=== PATIENT | female | born 1970 | race Caucasian/White ===

== ENCOUNTER 2020-03-12 22:30 | Emergency (ER) | payer BC ==
[~2020-03-12] VITALS: Ht 167.6 cm; Wt 57.2 kg
[2020-03-12 22:36] VITALS: Ht 167.6 cm; Wt 57.2 kg
[2020-03-13 00:23] LABS: BASOPHIL % 0.4 % (0-2); PLATELET COUNT 297 x10^3mcL (130-400); RED CELL DISTRIBUTION WIDTH 12.2 % (11.5-14.5)
[2020-03-13 00:31] LABS: T3 TOTAL 1.6 ng/mL
[2020-03-13 00:33] LABS: ALBUMIN 3.5 g/dL (3.4-5.0); ALKALINE PHOSPHATASE 61 U/L (46-116); ALT/SGPT 22 U/L (14-59); AST/SGOT 17 U/L (15-37); BILIRUBIN TOTAL 0.18 mg/dL (0.20-1.00); CALCIUM 7.3 mg/dL (8.5-10.1); CARBON DIOXIDE 22.3 mmol/L (21-32); CHLORIDE SERUM 107 mmol/L (98-107); CHOLESTEROL 150 mg/dL (<200); CHOLESTEROL/HDL RATIO 3.4; CREATININE SERUM 0.6 mg/dL (0.6-1.0); GFR1 > 60 mL/min; GLUCOSE SERUM 106 mg/dL (74-106); HDL CHOLESTEROL 44 mg/dL (40-60); LIPASE 109 IU/L (73-393); SODIUM SERUM 141 mmol/L (136-145); TOTAL PROTEIN, SERUM 6.6 g/dL (6.4-8.2); TRIGLYCERIDES 75 mg/dL (<150)
[2020-03-13 00:42] LABS: FREE T4 1.36 ng/dL (0.76-1.46); FREE THYROXINE INDEX 3.6 ug/dL (1.4-4.5); T4(THYROXINE) 10.1 ug/dL (4.7-13.3)
[2020-03-13 00:43] LABS: POTASSIUM SERUM 2.8 mmol/L (3.5-5.1)
[2020-03-13 01:14] VITALS: BP 93/48
[2020-03-13 01:16] LABS: microscopic required? NO
[2020-03-13 01:26] LABS: urine erythrocyte NEGATIVE (NEGATIVE)
[2020-03-13 01:42] LABS: AMPHETAMINE QUAL UR NONE DETECTED (See below)
== END 2020-03-13 01:14 | disposition home or self-care (01) ==
LOC: ED 22:30
PROVIDERS: Specialist
DX: F10.129 Alcohol abuse with intoxication, unspecified (principal); E87.6 Hypokalemia; Z87.442 Personal history of urinary calculi
CPT/HCPCS: 83880; 84439; G0480; J2405; J3490; J7030; Q0092